=== PATIENT | male | born 1970 ===

== ENCOUNTER 2017-05-21 10:21 | Emergency (ER) | payer MEDICAID ==
[2017-05-21 10:26] VITALS: TEMP 97.6
--- NOTE | 2017-05-21 11:17 | C.PDOC ---
History Of Present Illness Pt c/o left lower back pain radiating down LLE. Denies any specific injury. Time Seen by Provider: 05/21/17 10:35 Chief Complaint (Nursing): Back Pain History Per: Patient Onset/Duration Of Symptoms: Days (3) Current Symptoms Are (Timing): Still Present Quality Of Discomfort: "Pain" Severity: Moderate Previous Symptoms: Back Pain Associated Symptoms: None. denies: Incontinence, New Weakness, New Numbness Exacerbating Factor(s): Movement Additional History Per: Prior Records Past Medical History Reviewed: Historical Data, Nursing Documentation, Vital Signs Vital Signs: Last Vital Signs Temp 97.6 F 05/21/17 10:24 Pulse 90 05/21/17 10:24 Resp 20 05/21/17 10:24 BP 117/77 05/21/17 10:24 Pulse Ox 97 05/21/17 11:16 - Medical History PMH: Back Problems Other Surgeries: Right knee surgeries Family History: States: Unknown Family Hx - Social History Hx Alcohol Use: No (Denied) Hx Substance Use: No (Denied) - Immunization History Hx Tetanus Toxoid Vaccination: No Hx Influenza Vaccination: Yes (2014) Hx Pneumococcal Vaccination: No Review Of Systems Except As Marked, All Systems Reviewed And Found Negative. Constitutional: Negative for: Fever, Weakness Cardiovascular: Negative for: Chest Pain Respiratory: Negative for: Shortness of Breath Gastrointestinal: Negative for: Vomiting, Abdominal Pain Genitourinary: Negative for: Dysuria, Incontinence, Hematuria Musculoskeletal: Positive for: Back Pain. Negative for: Neck Pain Skin: Negative for: Rash Neurological: Negative for: Weakness, Seizures, Altered Mental Status Physical Exam - Physical Exam Appears: Non-toxic, No Acute Distress Skin: Normal Color, Warm, Dry, No Rash Head: Atraumatic, Normacephalic Eye(s): bilateral: Normal Inspection, PERRL, EOMI Neck: Normal ROM, Supple Cardiovascular: Rhythm Regular Respiratory: Normal Breath Sounds, No Accessory Muscle Use Gastrointestinal/Abdominal: Soft, No Tenderness Back: No CVA Tenderness, No Vertebral Tenderness, Paraspinal Tenderness (left lower) Extremity: Normal ROM, No Pedal Edema, No Calf Tenderness Extremity: Bilateral: Normal Color And Temperature Pulses: Left Dorsalis Pedis: Normal, Right Dorsalis Pedis: Normal Neurological/Psych: Oriented x3, Normal Motor, Normal Sensation ED Course And Treatment O2 Sat by Pulse Oximetry: 97 Pulse Ox Interpretation: Normal Reassessment Condition: Improved Disposition Counseled Patient/Family Regarding: Diagnosis, Need For Followup, Rx Given - Disposition Referrals: Mora Jean MD [Medical Doctor] - Disposition: HOME/ ROUTINE Disposition Time: 11:19 Condition: IMPROVED Additional Instructions: Follow up with your doctor for further evaluation and treatment, including MRI of the back. Return to the ER if you develop weakness, abdominal pain, trouble urinating, worsening of symptoms or if you have any other concerns. Prescriptions: traMADol/Acetaminophen [Ultracet 325 MG-37.5 MG] 1 tab PO Q4 PRN #30 tab PRN Reason: Pain, Severe (8-10) Instructions: Back Pain (ED) - Clinical Impression Clinical Impression: Low back pain radiating to left lower extremity
[2017-05-21 11:30] VITALS: BP 115/75; PULSE 83; RESP 16; O2SAT 98
== END 2017-05-21 11:29 | disposition home or self-care (01) ==
LOC: C.ER 10:21
DX: M54.5 Low back pain (principal)
CPT/HCPCS: 96372; 99283; J1885

== ENCOUNTER 2018-05-26 10:08 | Emergency (ER) | payer MEDICAID ==
[2018-05-26 10:18] VITALS: PULSE 100; RESP 20; TEMP 98.6; O2SAT 98
--- NOTE | 2018-05-26 10:46 | C.PDOC ---
History Of Present Illness 47 y/o male with history of chronic back pain and sciatica presents to ED for evaluation of low back pain worsening for "few days". Patient reports he was unable to get up this morning secondary to pain which prompted visit to ED today. Patient reports similar episode in the past consistent with chronic back pain. Patient denies fever,chills, abd. pain, N/V, denies dysuria, hematuria, bowel/bladder incontinence, saddle anesthesia, denies weakness, sensory or vascular deficits to B/L LEs. Ambulate to ED with stable gait. Time Seen by Provider: 05/26/18 10:23 Chief Complaint (Nursing): Back Pain History Per: Patient History/Exam Limitations: no limitations Onset/Duration Of Symptoms: Days Current Symptoms Are (Timing): Still Present Quality Of Discomfort: "Pain" Past Medical History Reviewed: Historical Data, Nursing Documentation, Vital Signs Vital Signs: Last Vital Signs Temp 98.6 F 05/26/18 10:16 Pulse 100 H 05/26/18 10:16 Resp 20 05/26/18 10:16 BP Pulse Ox 98 05/26/18 10:51 - Medical History PMH: Arthritis (?), Back Problems Surgical History: No Surg Hx Family History: States: No Known Family Hx - Social History Hx Alcohol Use: No (Denied) Hx Substance Use: No (Denied) - Immunization History Hx Tetanus Toxoid Vaccination: No Hx Influenza Vaccination: Yes (2015) Hx Pneumococcal Vaccination: No Review Of Systems Constitutional: Negative for: Fever, Chills Gastrointestinal: Negative for: Nausea, Vomiting, Abdominal Pain Genitourinary: Negative for: Dysuria, Hematuria Musculoskeletal: Positive for: Back Pain Skin: Negative for: Rash Neurological: Negative for: Weakness, Numbness Physical Exam - Physical Exam Appears: Well, Non-toxic, No Acute Distress Skin: Warm, Dry, No Rash Head: Normacephalic Oral Mucosa: Moist Throat: No Erythema Neck: Normal ROM, Supple Cardiovascular: Rhythm Regular Respiratory: No Decreased Breath Sounds, No Accessory Muscle Use, No Rales, No Rhonchi, No Wheezing Gastrointestinal/Abdominal: Soft, No Tenderness, No Distention, No Guarding, No Rebound Back: No CVA Tenderness, No Vertebral Tenderness, Paraspinal Tenderness ( diffuse lumbar), Straight Leg Raising (B/L legs (+) at 40 degrees) Extremity: Normal ROM, No Pedal Edema, No Calf Tenderness (B/L), No Swelling Neurological/Psych: Oriented x3, Normal Speech, Normal Motor, Normal Sensation, Normal Reflexes ED Course And Treatment O2 Sat by Pulse Oximetry: 98 (RA) Pulse Ox Interpretation: Normal Progress Note: On re-evaluation, pt is afebrile, hemodynamicaly stable. Non- toxic, Ambulatory in Ed with stable gait. ENT: no acute findings. neck: Supple, (-) JVD. Abd: benign, (-) guarding, (-) rebound. back: (-) CVA tenderness. Neurologicaly intact. Pt has clinical findings c/w chronic lower back pain hx of sciatica, with acute exacerbation. Pt advised. ref. to f/u with PMD, PM in 2 days for re-eval. return if any worseningor new changes. Disposition Counseled Patient/Family Regarding: Diagnosis, Need For Followup, Rx Given - Disposition Referrals: [facility] [Provider Group] [facility] [Provider Group] Disposition: HOME/ ROUTINE Disposition Time: 10:43 Condition: STABLE Additional Instructions: back brace Avoid any type of activity for 1-2 weeks take medication as prescribed Follow up with PMD, pain management for further evaluation, MRI of L-spine, and pain control. return if any new changes. 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 - Scribe Statement The provider has reviewed the documentation as recorded by the Shivani Nathan All medical record entries made by the Shivani were at my direction and personally dictated by me. I have reviewed the chart and agree that the record accurately reflects my personal performance of the history, physical exam, medical decision making, and the department course for this patient. I have also personally directed, reviewed, and agree with the discharge instructions and disposition.
== END 2018-05-26 11:04 | disposition home or self-care (01) ==
LOC: C.ER 10:08
DX: M54.16 Radiculopathy, lumbar region (principal)
CPT/HCPCS: 96372; 99283; J1885